=== PATIENT | male | born 1980 | race African-American/Black ===

== ENCOUNTER → 2021-07-29 | Day surgery (SDC) | payer OTHER ==
[~2021-07-29] MED LIST: DEXAMETHASONE SOD PHOS INJ 4 MG/ML SDV ONE; FENTANYL CITRATE/PF 100MCG/2 ML INJ ONE; GLYCOPYRROLATE INJ 0.2 MG/ML VIAL ONE; HYDROCODONE/APAP 7.5MG-325MG 1 EA TAB ONE; KETOROLAC TROMETHAMINE 30 MG/ML VIAL ONE; LIDOCAINE HCL 2% LOCAL INJ 5 ML SDV VIAL INJ ONE; MIDAZOLAM HCL 2 MG/2 ML VIAL ONE; NEOSTIGMINE 1 MG/ML 10ML VIAL ONE; ONDANSETRON HCL INJ 2MG/ML 2ML 2 MG/ML VIAL ONE; POVIDONE IODINE 0.05% 0.05 % ML PO ONE; PROPOFOL IV EMULSION 10 MG/ML 20 ML VIAL ONE; ROCURONIUM BROMIDE 10 MG/ML 5ML VIAL IV ONE; ROPIVACAINE 0.5% 5 MG/ML 30 ML SDV ONE; SEVOFLURANE INHAL SOLN 250 ML PEN BTL ONE; SODIUM CHLORIDE 0.9% 50ML 50 ML ONE; SUCCINYLCHOLINE CHLORIDE 20 MG/ML 10ML VIAL ONE
[2021-07-29 12:05] VITALS: BP 131/93
== END | disposition home or self-care (01) ==
LOC: OR 07:27
PROVIDERS: ATTEND Specialist
DX: S83.512A Sprain of anterior cruciate ligament of left knee, initial encounter (principal); S83.252A Bucket-handle tear of lateral meniscus, current injury, left knee, initial encounter; S83.272A Complex tear of lateral meniscus, current injury, left knee, initial encounter; M65.862 Other synovitis and tenosynovitis, left lower leg; X58.XXXA Exposure to other specified factors, initial encounter; Z91.041 Radiographic dye allergy status; Z91.013 Allergy to seafood; Z01.812 Encounter for preprocedural laboratory examination; Z20.822 Contact with and (suspected) exposure to COVID-19
CPT/HCPCS: 29881; 29888; C1713 ×2; C1769; J0690; J1885; U0002; J0330; J1100; J2001; J2250; J2405; J2710; J2795; J3010

== ENCOUNTER → 2021-09-09 | Outpatient (RCR) | payer OTHER | LOC: PT 08-16 13:18 | PROVIDERS: ATTEND Physician Assistant | DX: Z47.89 Encounter for other orthopedic aftercare (principal); S83.512D Sprain of anterior cruciate ligament of left knee, subsequent encounter; S83.272D Complex tear of lateral meniscus, current injury, left knee, subsequent encounter | CPT/HCPCS: 97110 ×11; 97112; 97139; 97161; G0283 ×4 ==

== ENCOUNTER 2021-10-07 11:00 | Outpatient (RCR) | payer OTHER | END 2021-10-10 | LOC: PT 11:00 | PROVIDERS: ATTEND Physician Assistant | DX: Z47.89 Encounter for other orthopedic aftercare (principal); S83.512D Sprain of anterior cruciate ligament of left knee, subsequent encounter; S83.272D Complex tear of lateral meniscus, current injury, left knee, subsequent encounter | CPT/HCPCS: 97139 ==